=== PATIENT | female | born 1995 ===

== ENCOUNTER → 2020-12-18 15:31 | Outpatient (CLI) | payer OTHER, SELFPAY ==
[2020-12-18 16:19] LABS: Add Manual Diff / Slide Review NO; Basophils Absolute Auto 100 /uL (0-100); Basophils Percent Auto 0.6 % (0-2); Eosinophils Absolute Auto 200 /uL (0-450); Eosinophils Percent Auto 2.1 % (2-4); Hematocrit 36.5 % (36-46); Hemoglobin 12.9 g/dL (12.0-16.0); Lymphocytes Absolute Auto 2100 /uL (1100-4500); Lymphocytes Percent Auto 25.7 % (25-40); Mean Corpuscular HGB Conc 35.5 % (30-36); Mean Corpuscular Hemoglobin 31.6 PG (26-34); Mean Corpuscular Volume 88.9 fL (80-100); Monocytes Absolute Auto 800 /uL (0-900); Monocytes Percent Auto 9.2 % (3-14); Neutrophils Absolute Auto 5200 /uL (1500-7000); Neutrophils Percent Auto 62.4 % (50-75); Platelet Count 248 X10^3/uL (150-400); Red Cell Distribution Width 12.7 % (11.6-14.8); White Blood Cell Count 8.3 X10^3/uL (4.5-11.0)
[2020-12-18 16:41] LABS: Appearance Urine UA CLEAR; Bilirubin Urine UA NEGATIVE (NEGATIVE); Color Urine UA YELLOW; Glucose Urine UA NEGATIVE (Negative); Ketones Urine UA 1+ (NEGATIVE); Leukocyte Esterase Urine UA NEGATIVE (NEGATIVE); Nitrite Urine UA NEGATIVE (Negative); Occult Blood Urine UA NEGATIVE (Negative); Protein Urine UA TRACE (Negative); Specific Gravity Urine UA 1.025 (1.000-1.035); Urobilinogen Urine UA 0.2 E.U./dL (0.2)
[2020-12-19 06:40] LABS: RPR Screen Non Reactive (Non Reactive)
[2020-12-19 08:10] LABS: Varicella IgG Antibody 846 index (Immune >165)
[2020-12-19 16:25] LABS: Hepatitis B Surface Antigen NEGATIVE s/c (NEGATIVE)
[2020-12-19 16:48] LABS: HIV 1 & 2 Ab/Ag 4th Gen Combo NEGATIVE (NEGATIVE); Hep C Virus Ab w/Reflex Quant NEGATIVE s/c (NEGATIVE)
[2020-12-28 13:42] LABS: Rubella Antibody IgG 41.7 IU/mL (>15)
== END ==
PROVIDERS: Referring Provider Family Medicine; Visit Provider Family Medicine
DX: Z34.81 Encounter for supervision of other normal pregnancy, first trimester (principal)
CPT/HCPCS: 36415; 80055; 81003; 86787; 86803; 86850; 86900; 86901; 87086; 87389

== ENCOUNTER → 2021-02-11 12:56 | Outpatient (CLI) | payer OTHER, SELFPAY ==
[2021-02-15 20:22] LABS: Calc Gestational Age Ultrasound (.); Inhibin A, Dimeric 97.18 pg/mL (.); Inhibin A, MoM 0.79 (.); Maternal Ethnicity Other (.); Maternal Weight 234 lbs (.); Number of Fetuses No (.); OSBR Risk 1 IN 10000 (.); Results Report (.); Test Results *Screen Negative* (.); hCG, MoM 0.87 (.); hCG, Serum 25017 mIU/mL (.)
== END ==
PROVIDERS: Referring Provider Family Medicine; Visit Provider Family Medicine
DX: Z3A.16 16 weeks gestation of pregnancy (principal)
CPT/HCPCS: 36415; 82105; 82677; 84702; 86336

== ENCOUNTER → 2021-03-11 11:40 | Outpatient (CLI) | payer OTHER, SELFPAY ==
--- NOTE | 2021-03-11 11:41 | DI.US.S_ITS ---
PROCEDURE: US OB >= 14 WEEKS FETUS INDICATIONS: ANATOMY OUTSIDE/PRIOR DATING DATA: Last menstrual period (LMP): 10/29/2020. LMP-based estimated date of delivery (ESEQUIEL): 07/26/2021. First dating scan (date and location): 03/11/2021 Estimated date of delivery (ESEQUIEL) from first dating scan: 07/26/2021 The calculations are made using the study generated ESEQUIEL of 07/26/2021. TECHNIQUE: Real-time scanning was performed of the fetus, with image documentation and biometric measurements. Endovaginal scanning: Not indicated COMPARISON: None. FINDINGS: General: A single living intrauterine gestation is present. Presentation: Vertex Placenta: Placental position is posterior, without previa. Amniotic fluid index: 12.2 cm, normal range is 5-24 cm. Single deepest vertical pocket is 3.8 cm. heart rate: 169 beats per minute. Maternal cervical canal: 3.2 cm long. Normal lower limit is 2.5 cm. biometrics: Biparietal diameter: 4.8 cm, 20 weeks, 4 days Head circumference: 17.9 cm, 20 weeks, 2 days Abdominal circumference: 14.5 cm, 19 weeks, 5 days Femur length: 3.5 cm, 21 weeks, 1 day Clinically estimated gestational age: Not applicable Composite gestational age from present scan: 20 weeks, 3 days Estimated weight and percentile: 352 g, 44% Anatomic survey: Neuro: Ventricles are non-dilated at less than 10 mm. Cisterna magna is normal at 3-11 mm. Cerebellum is normal in size and morphology. Nuchal skin fold: Normal at less than 6 mm between 14-21 weeks gestational age. Face: Nose and lips, facial profile are not well seen due to lie. Spine: No evidence for spina bifida. Heart: 4-chambered heart is present, with normal ventricular outflow tracts. Diaphragm: Diaphragm is intact. Stomach: Left-sided stomach is present. Kidneys: No hydronephrosis. Normal is less than 5 mm in 2nd trimester, less than 7 mm in 3rd trimester. Cord: 3-vessel cord has orthotopic insertion. Bladder: Normal in size. Extremities: All 4 extremities identified. IMPRESSION: 1. Single live intrauterine with fetus in vertex presentation. heart rate is 169 beats per minute. Normal amount of amniotic fluid. Estimated gestational age is 20 weeks, 3 days. Estimated weight is at 44th percentile. 2. facial profile is not well seen due to lie. Rest of the anatomic survey is normal. We strive to produce accurate, complete, and clear reports of imaging services. To assist us in improving patient care, this report was composed using standard report templates and voice recognition software. Therefore, it may contain abnormal punctuation, insertions and/or omissions. Occasional wrong-word or sound-alike substitutions may occur. Though we review the report and make efforts to correct it, we do recommend that the report be read carefully in proper context to recognize any text inaccuracies. Dictated by: Ez Aragon M.D. on 03/17/2021 at 15:20 Approved by: Ez Aragon M.D. on 03/17/2021 at 15:24
== END ==
PROVIDERS: Referring Provider Family Medicine; Visit Provider Family Medicine
DX: Z36.89 Encounter for other specified antenatal screening (principal); Z3A.20 20 weeks gestation of pregnancy
CPT/HCPCS: 76811

== ENCOUNTER → 2021-03-26 15:46 | Outpatient (CLI) | payer OTHER, SELFPAY ==
--- NOTE | 2021-03-26 15:47 | DI.US.S_ITS ---
PROCEDURE: US OB FOLLOW UP INDICATIONS: FOLLOW UP FACE AND PROFILE OUTSIDE/PRIOR DATING DATA: Last menstrual period (LMP): 10/19/2020 LMP-based estimated date of delivery (ESEQUIEL): 07/26/2021. First dating scan (date and location): 03/11/2021. Estimated date of delivery (ESEQUIEL) from first dating scan: 07/26/2021. The calculations are made using the ultrasound ESEQUIEL of 07/26/2021. TECHNIQUE: Real-time scanning was performed of the fetus, with image documentation and biometric measurements. COMPARISON: [facility], , OB >= 14 WEEKS FETUS, 03/11/2021, 12:19. 6 FINDINGS: General: A single living intrauterine gestation is present. Presentation: Breech. Placenta: Placental position is posterior , without previa. Amniotic fluid index: 16 cm, normal range is 5-24 cm. heart rate: 162 beats per minute. Maternal cervical canal: 4.1 cm long. Normal lower limit is 2.5 cm. Clinically estimated gestational age: 22 weeks 4 days + normal appearance of the facial profile, nose and lips. IMPRESSION: Single living IUP redemonstrated and today's exam demonstrating normal appearance of the facial profile and the nose and lips. We strive to produce accurate, complete, and clear reports of imaging services. To assist us in improving patient care, this report was composed using standard report templates and voice recognition software. Therefore, it may contain abnormal punctuation, insertions and/or omissions. Occasional wrong-word or sound-alike substitutions may occur. Though we review the report and make efforts to correct it, we do recommend that the report be read carefully in proper context to recognize any text inaccuracies. Dictated by: Sven Posada [facility] Interpreted: Nitish Yoo MD on 03/26/2021 at 17:08 Transcribed by: PAMELA on 03/26/2021 at 17:10 Approved by: Nitish Yoo M.D. on 04/23/2021 at 11:14
== END ==
PROVIDERS: Referring Provider Family Medicine; Visit Provider Family Medicine
DX: Z36.2 Encounter for other antenatal screening follow-up (principal); Z3A.22 22 weeks gestation of pregnancy
CPT/HCPCS: 76816

== ENCOUNTER → 2021-04-28 13:20 | Outpatient (CLI) | payer OTHER, SELFPAY ==
[2021-04-28 14:53] LABS: Add Manual Diff / Slide Review NO; Basophils Absolute Auto 0 /uL (0-100); Basophils Percent Auto 0.3 % (0-2); Eosinophils Absolute Auto 200 /uL (0-450); Eosinophils Percent Auto 1.8 % (2-4); Hematocrit 35.6 % (36-46); Hemoglobin 12.8 g/dL (12.0-16.0); Lymphocytes Absolute Auto 2000 /uL (1100-4500); Lymphocytes Percent Auto 19.3 % (25-40); Mean Corpuscular HGB Conc 35.9 % (30-36); Mean Corpuscular Hemoglobin 32.5 PG (26-34); Mean Corpuscular Volume 90.5 fL (80-100); Monocytes Absolute Auto 600 /uL (0-900); Monocytes Percent Auto 5.9 % (3-14); Neutrophils Absolute Auto 7600 /uL (1500-7000); Neutrophils Percent Auto 72.7 % (50-75); Platelet Count 220 X10^3/uL (150-400); Red Blood Cell Count 3.94 X10^6/uL (4.0-5.2); Red Cell Distribution Width 13.5 % (11.6-14.8); White Blood Cell Count 10.4 X10^3/uL (4.5-11.0)
[2021-04-28 15:09] LABS: GTT (PREG) 1 Hour PP 50gm Dose 124 mg/dL (76-139)
== END ==
PROVIDERS: Referring Provider Family Medicine; Visit Provider Family Medicine
DX: Z34.90 Encounter for supervision of normal pregnancy, unspecified, unspecified trimester (principal); Z3A.26 26 weeks gestation of pregnancy
CPT/HCPCS: 36415; 82950; 85025

== ENCOUNTER → 2021-07-02 10:22 | Outpatient (CLI) | payer OTHER, SELFPAY ==
[2021-07-03 07:55] LABS: Strep Grp B PCR NEG for Grp B Strep
== END ==
PROVIDERS: Visit Provider Family Medicine
DX: Z34.93 Encounter for supervision of normal pregnancy, unspecified, third trimester (principal); Z3A.36 36 weeks gestation of pregnancy
CPT/HCPCS: 87653

== ENCOUNTER 2021-07-28 18:22 | Inpatient (IN) | payer OTHER, SELFPAY ==
[2021-07-28 19:47] LABS: Add Manual Diff / Slide Review NO; Basophils Absolute Auto 100 /uL (0-100); Basophils Percent Auto 0.8 % (0-2); Eosinophils Absolute Auto 200 /uL (0-450); Eosinophils Percent Auto 2.1 % (2-4); Hematocrit 35.4 % (36-46); Hemoglobin 12.6 g/dL (12.0-16.0); Lymphocytes Absolute Auto 2000 /uL (1100-4500); Lymphocytes Percent Auto 24.5 % (25-40); Mean Corpuscular HGB Conc 35.7 % (30-36); Mean Corpuscular Hemoglobin 31.7 PG (26-34); Mean Corpuscular Volume 88.8 fL (80-100); Monocytes Absolute Auto 1000 /uL (0-900); Monocytes Percent Auto 12.8 % (3-14); Neutrophils Absolute Auto 4800 /uL (1500-7000); Neutrophils Percent Auto 59.8 % (50-75); Platelet Count 187 X10^3/uL (150-400); Red Blood Cell Count 3.99 X10^6/uL (4.0-5.2); Red Cell Distribution Width 14.5 % (11.6-14.8); White Blood Cell Count 8.1 X10^3/uL (4.5-11.0)
[2021-07-28 20:20] LABS: COVID19 -Nasal RAPID Negative (Negative)
[2021-07-28] MEDS: miSOPROStoL 25 MCG TABLET VAG (20:27)
[2021-07-29] MEDS: miSOPROStoL 25 MCG TABLET VAG (00:30)
--- NOTE | 2021-07-29 09:12 | P.HPOB_ITS ---
OB HPI Date/Time Date of admission: 07/29/21 Date Patient Seen: 07/28/21 History of Present Condition Chief complaint: Induction of labor ESEQUIEL Calculator Estimated Delivery Date Method Current WG Current Estimate 07/26/21 Manual 40w 3d Final ESEQUIEL - FILIPE Other Estimates 07/26/21 LMP (Certain) 40w 3d 07/27/21 Ultrasound #1 40w 2d Estimated Gestational Age (weeks): 40w3d : 1 Para: 0 Narrative: Pt is a 26yo at 40w3d here for elective/post-dates IOL. Pt reports frequent movement. She denies vaginal bleeding or LOF. She started having mild contractions overnight with cytotec. Her has been uncomplicated. care: limited care, initiated at week # (8) and pounds weight gain (48) Dating criteria OB: LMP confirmed by 1st trimester US Ultrasounds: normal 1st trimester US and normal mid trimester US Obstetrical complications: none Medical complications OB: none Preadmission Labs Last OB Lab Results: Blood Type O Positive 07/28/21 19:30 Antibody Screen Negative 07/28/21 19:30 Hematocrit 35.4 % (36-46) L 07/28/21 19:30 Hemoglobin 12.6 g/dL (12.0-16.0) 07/28/21 19:30 Hepatitis B Surface Antigen Negative s/c (NEGATIVE) 12/18/20 15 :52 Hepatitis C Antibody Negative s/c (NEGATIVE) 12/18/20 15:52 Rubella Antibody 41.7 IU/mL (>15) 12/18/20 15:52 Varicella-Zoster IgG Antibody 846 index (Immune >165) 12/18/20 15:52 Glucose 1 Hour 124 mg/dL (76-139) 04/28/21 13:26 Group B Streptococcus (PCR) Neg for grp b strep 07/02/21 10:22 -: Urine: negative Genetic Screens: Quad screen: Normal External Labs -: Urine: negative Evaluation Evaluation Baseline heart rate: 150 Variability: Moderate (11-25) monitor accelerations: Present Monitor Decelerations: Absent Contraction Frequency (minutes): 4 Status: Category l Dilation (cm): 2 Effacement (%): 60 Dilation: 1-2 cm Effacement: 60-70% station: -4 Position of cervix: posterior Consistency: soft Palacio score: 5 PFSH Medical History (Updated 12/09/20 @ 08:50 by Jacy Perez RN) GERD (gastroesophageal reflux disease) (~2005) Migraines (~2018) Surgical History (Updated 12/09/20 @ 08:50 by Jacy Perez RN) H/O bilateral breast reduction surgery (~09/2019) History of repair of ACL (~2011) Family History (Updated 12/09/20 @ 08:57 by Jacy Perez RN) Mother No problems noted. Father No problems noted. Grandmother Bronchitis Grandfather Unknown family medical history Grandmother Unknown family medical history Grandfather Unknown family medical history Social History marital status: number of children: 0 household members: spouse lives independently: Yes caregiver/support person: No housing: house pets and animals: Yes (1 dog: should be safe. ) education level: college (BA in Pre-law. ) occupational status: employed ([employer] ) current occupational exposures/hazards: No special daniel needs: No seatbelt use: always do you feel safe at home: Yes Smoking Status: Never smoker second hand exposure: No alcohol intake: former (Pre-: socially, infrequent, every couple months. ) substance use type: does not use during the past year weight has: remained stable well-balanced diet: about half the time daily servings fruits/ve-4 caffeine: No Type(s) of exercise: weight lifting (Used to do weight lifting, 3 times a week, some cardio in alternate weeks. ) and normal ROM and activity frequency: 3-4 times per week (Has not in the last month. ) duration: 30-45 minutes/day Meds Home Medications and Allergies Home Medications Medication Instructions Recorded Confirmed Type No Known Home Medications 07/28/21 07/28/21 History Allergies Allergy/AdvReac Type Severity Reaction Status Date / Time No Known Drug Allergies Allergy Verified 07/28/21 09:25 OB Exam Narrative Exam Narrative: Gen: NAD, sitting comfortably in bed, appears well CV: RRR, no murmurs Resp: clear to auscultation bilaterally Abd: soft, nontender, gravid Ext: no edema Objective Labs Result Diagrams: 07/28/21 19:30 Labs: Laboratory Results - last 24 hr 07/28/21 07/28/21 07/28/21 18:45 19:30 19:30 WBC 8.1 RBC 3.99 L Hgb 12.6 Hct 35.4 L MCV 88.8 MCH 31.7 MCHC 35.7 RDW 14.5 Plt Count 187 Neut % (Auto) 59.8 Lymph % (Auto) 24.5 L Lipscomb % (Auto) 12.8 Eos % (Auto) 2.1 Baso % (Auto) 0.8 Neut # (Auto) 4800 Lymph # (Auto) 2000 Lipscomb # (Auto) 1000 H Eos # (Auto) 200 Baso # (Auto) 100 SARS-CoV-2 (PCR) Negative Blood Type O Positive Antibody Screen Negative Assessment and Plan Assessment and Plan Assessment and Plan narrative: Pt is a 26yo at 40w3d here for elective/post-dates IOL. Pt received 2 doses of cytotec overnight with cervical change. Palacio score now 5, improved from 1 at admission. GBS negative, Rh positive. - Expectant management, anticipate - Encourage out of bed/ambulation to help with descent - FHT reassuring - GBS negative, no prophylaxis indicated - Epidural for pain control when in active labor - Palacio of 5, however pt with increasing contractions and would likely not tolerate well aburto placement. Will start pitocin and titrate as tolerated.
[2021-07-29] MEDS: LACTATED RINGERS 1,000 ML 100 ML IV ×2 (09:29→22:14)
[2021-07-29] MEDS: OXYTOCIN PREMIX 30 UNIT/500 ML PLAST..BAG IV (09:30)
--- NOTE | 2021-07-29 13:35 | PM.OBPNLAB ---
Date/Time Date Patient Seen: 07/29/21 Time Patient Seen: 13:00 Pain Control Pain control: tolerating well Pelvic Exam Dilation (cm): 3 Effacement (%): 70 station: -2 Amniotic membrane status: Ruptured Comments: Cervix remains very posterior After informed consent, AROM performed with production of clear fluid. Contractions Pitocin rate (mU/min): 8 Contraction frequency (min): 3 Contraction pattern: Regular Status status: Category l Heart Rate Baseline: 130 Monitor Accelerations: Present Monitor Decelerations: Absent Monitor Variability: Moderate Assessment and Plan Comments: Pt is a 26yo at 40w3d here for elective/post-dates IOL.? Pt received 2 doses of cytotec overnight with cervical change.? Now on pitocin with ongoing change. AROM performed with production of clear fluid. GBS negative, Rh positive.? - Expectant management, anticipate - FHT reassuring - GBS negative, no prophylaxis indicated - Epidural for pain control when in active labor - Continue pitocin, titrate as tolerated
[2021-07-29] MEDS: FENT 2MCG/ML BUPIV 0.125% EPI 200 MCG/100 ML PLAST..BAG 20 MCG EPIDURAL (22:58)
--- NOTE | 2021-07-30 02:55 | PM.OBPRVD ---
Labor & Delivery Delivery date: 07/30/21 Intrapartal Events: Prolonged 2nd Stage > 2.5 hours Cervical ripening method: per misoprostal protocol Induction method: per pitocin protocol Delivery augmentation: rupture of membranes Delivery monitor: external FHT and external uterine Route of delivery: Episiotomy description: None L&D Laceration Description: Periurethral - 1st Degree and Vaginal - 1st Degree Delivery repair: chromic Quantitative Blood Loss: 200 Anesthesia Type: Epidural Complications: None Narrative: PROCEDURE: at 40w2d presented for elective IOL and was admitted to Labor and Delivery. She received cytotec for induction. Pitocin was initiated, and titrated to maximum of 20mU. ROM was performed with production of clear fluid. The patient progressed through the 1st stage over 7.5 hours. Pain was controlled with an epidural. The patient progressed through the 2nd stage over 3 hours and delivered a viable male infant with APGARs 8/9 at 2:16 via without complications. The perineum and vagina were inspected with small vaginal laceration near the perineum that was bleeding and repaired with 3-O Chromic. Periurethral laceration was not repaired due to hemostasis. PREPROCEDURE DIAGNOSIS: Intrauterine at 40w3d GBS negative RH positive POSTPROCEDURE DIAGNOSIS: Intrauterine at 40w3d, delivered Same as preprocedure Baby 1: Infant gender: Male Presentation: vertex Position: Left Occiput Posterior (transverse quickly converting to LOP as head delivered) Placenta delivery description: Spontaneous Cord Vessel Description: 3 Vessels score (1 min): 8 score (5 min): 9 weight: 7 lb 7.543 oz Plan for aftercare: Routine care
[2021-07-30] MEDS: DERMOPLAST SPRAY 20% 60 ML 1 SPRAY TOP (08:34)
[2021-07-30] MEDS: LANOLIN OINT 7 GM 1 APPLIC TOP (08:35)
[2021-07-30] MEDS: DOCUSATE 100 MG CAPSULE PO (08:35)
[2021-07-30] MEDS: IBUPROFEN 600 MG TABLET PO ×2 (08:36→17:17)
[2021-07-30] MEDS: PRENATAL VIT,CALC/IRON/FOLIC 1 TABLET 1 TAB PO (08:36)
[2021-07-31] MEDS: IBUPROFEN 600 MG TABLET PO ×2 (01:09→08:03)
[2021-07-31] MEDS: DOCUSATE 100 MG CAPSULE PO (08:04)
[2021-07-31] MEDS: PRENATAL VIT,CALC/IRON/FOLIC 1 TABLET 1 TAB PO (08:04)
--- NOTE | 2021-07-31 10:42 | PM.OBDS.1 ---
Discharge Providers Provider Date of admission: 07/28/21 18:22 Discharge Date: 07/31/21 Primary care physician: Doctor Deonte MD Consults: 07/31/21 02:52 Consult to Product Safety Lead Routine Comment: Discharge provider: Beth Sevilla MD Summary Hospital Course Date Patient Seen: 07/31/21 Time Patient Seen: 09:45 Diagnoses: 40w3d gestation GBS negative RH positive Hospital Course: The pt presented for elective IOL. She received cytotec followed by pitocin. She had an epidural for pain control. AROM was performed with clear fluid present. She progressed to complete and had an of a viable boy on 07/30/21. A small vaginal laceration was then repaired. , there were no complications. At the time of discharge she was voiding, ambulating, passing flatus without difficulty. Her lochia was decreasing appropriately. She was breast-feeding with good last. Her pain was well controlled. She will follow up in clinic in 6 weeks her check. She is undecided regarding contraception. Peripartum Data Infant Delivery Method: Natural Vaginal Laceration Description: Vaginal - 1st Degree Episiotomy description: None Procedures: Spontaneous vaginal delivery complications: none [place] 1: Gender: Male Disposition of : home Discharge Diagnosis (1) Spontaneous vaginal delivery: Status: Acute Status at Discharge Cognitive/behavioral status at discharge: oriented Functional status at discharge: independent ambulation Overall status at discharge: patient is progressing back to baseline Time Spent with Patient Time attestation: Total time spent providing and/or coordinating discharge services: Objective Labs Result Diagrams: 07/28/21 19:30 Exam Narrative Exam Narrative: Gen: NAD, sitting comfortably in bed, appears well CV: RRR, no murmurs Resp: clear to auscultation bilaterally Abd: soft, appropriately tender, fundus firm and below the umbilicus, nondistended Ext: no edema Discharge Plan Discharge Plan Patient Disposition: Home Discharge orders & Medications Prescriptions: New acetaminophen 325 mg Tablet 650 mg PO Q6HR PRN (Reason: Pain, Mild (1-3)) Qty: 30 0RF docusate sodium 100 mg Capsule 100 mg PO DAILY Qty: 30 0RF ibuprofen 600 mg Tablet 600 mg PO Q6HR PRN (Reason: Pain, Mild (1-3)) Qty: 30 0RF Follow up/Referrals: Beth Sevilla MD [Physician] - 6 Weeks (You can make your 6 week appointment tomorrow at your baby's follow up appointment. ) Diet/Activity/Treatments Diet: Diet as Tolerated and Regular Skin/Wound/Dressing Care Report to your healthcare provider any signs of infection, such as:: chills, fever, increased pain and unusual drainage Visit Report/Discharge Packet Instructions: DI for and Nipple Soreness Stand Alone Forms: Discharge: Care Visit Report Forms: Patient Portal/API, Stroke Signs & Symptoms Discharge Data Primary Care Provider: Miscellaneous,Doctor Discharges patient from system. Discharge Date/Time: 07/31/21 14:40
[2021-07-31 13:56] VITALS: BP 129/68; PULSE 92; RESP 16; TEMP 36.7
== END 2021-07-31 14:40 | disposition home or self-care (01) | DRG 807 ==
PROVIDERS: Admitting Provider Family Medicine; Referring Provider Family Medicine; Visit Provider Family Medicine
DX: O48.0 Post-term pregnancy (principal); Z37.0 Single live birth; O63.1 Prolonged second stage (of labor); Z3A.40 40 weeks gestation of pregnancy; O70.0 First degree perineal laceration during delivery; Z20.822 Contact with and (suspected) exposure to COVID-19
CPT/HCPCS: 01967; 36415; 59050; 59400; 85025; 86850; 86900; 86901; 87635; C9803; G0379; J2590

== ENCOUNTER 2021-11-07 14:23 | Emergency (ER) | payer OTHER, SELFPAY ==
[2021-11-07 14:26] VITALS: BP 111/53; PULSE 85; RESP 20; TEMP 36.7; O2SAT 99; BMI 40.7
--- NOTE | 2021-11-07 14:31 | DI.RAD.S_ITS ---
PROCEDURE: XR KNEE RT 3V INDICATIONS: injury/felt a pop TECHNIQUE: 3 views of the knee were acquired. COMPARISON: None. FINDINGS: Bones: No fractures or dislocations. No suspicious bony lesions. There is a small patellar enthesophyte. Soft tissues: No joint effusion. No suspicious soft tissue calcifications. IMPRESSION: Mild degenerative change. No acute radiographic findings. Dictated by: Shikha Dubon M.D. on 11/07/2021 at 15:20 Approved by: Shikha Dubon M.D. on 11/07/2021 at 15:20
--- NOTE | 2021-11-07 15:42 | ED.LOWEXIN ---
HPI - Extremity Injury (Lower) <Chris Alejandro PA-C - Last Filed: 11/07/21 17:00> General Chief Complaint: Extremity Injury, Lower Stated Complaint: R Knee Pain Time Seen by Provider: 11/07/21 15:42 Source: patient Mode of arrival: EMS History of Present Illness HPI Narrative: Patient is 26-year-old female who presents to the emergency room today with complaint of right knee pain this started after she heard a pop while playing volleyball today at about 1:00 a.m.. States she has had a torn ACL in her left knee and that this feels the same. States the knee is very painful and it is difficult for her to weight bear using that knee. States she is in a he needs to go to work any something still show her limited ability. Denies any other concerns at this time Related Data Previous Rx's Medication Instructions Recorded acetaminophen 325 mg tablet 650 mg PO Q6HR PRN Pain, Mild 07/31/21 (1-3) #30 tabs docusate sodium 100 mg capsule 100 mg PO DAILY #30 caps 07/31/21 ibuprofen 600 mg tablet 600 mg PO Q6HR PRN Pain, Mild 07/31/21 (1-3) #30 tabs Allergies Allergy/AdvReac Type Severity Reaction Status Date / Time No Known Drug Allergies Allergy Verified 07/28/21 09:25 Review of Systems <Chris Alejandro PA-C - Last Filed: 11/07/21 17:00> Review of Systems Narrative: R.O.S.: General: No fever, chills or fatigue. Cardiovascular: No chest pain or palpitations Respiratory: No S.O.B. HEENT: No congestion, ear pain, rhinorrhea, sore throat or tinnitus Gastrointestinal: No nausea or vomiting Skin: No rash or associated abnormalities Musculoskeletal: Right knee pain? Neurological: Awake, alert and in not apparent distress. No Headaches, changes in vision or other related neurological concerns. Patient History <Chris Alejandro PA-C - Last Filed: 11/07/21 17:00> Medical History (Updated 11/07/21 @ 16:52 by Chris Alejandro PA-C) GERD (gastroesophageal reflux disease) (~2005) Migraines (~2018) Surgical History (Updated 12/09/20 @ 08:50 by Jacy Perez RN) H/O bilateral breast reduction surgery (~09/2019) History of repair of ACL (~2011) Family History (Updated 12/09/20 @ 08:57 by Jacy Perez RN) Mother No problems noted. Father No problems noted. Grandmother Bronchitis Grandfather Unknown family medical history Grandmother Unknown family medical history Grandfather Unknown family medical history Social History marital status: number of children: 0 household members: spouse lives independently: Yes caregiver/support person: No housing: house pets and animals: Yes (1 dog: should be safe. ) education level: college occupational status: employed current occupational exposures/hazards: No special daniel needs: No seatbelt use: always do you feel safe at home: Yes Smoking Status: Never smoker second hand exposure: No alcohol intake: former substance use type: does not use during the past year weight has: remained stable well-balanced diet: about half the time daily servings fruits/ve-4 caffeine: No Type(s) of exercise: weight lifting and normal ROM and activity frequency: 3-4 times per week duration: 30-45 minutes/day Smoking Status: Never smoker Substance Use Type: does not use Exam <Chris Alejandro PA-C - Last Filed: 11/07/21 17:00> Initial Vital Signs Initial Vital Signs: Vital Signs Temperature 98.1 F 11/07/21 14:26 Pulse Rate 85 11/07/21 14:26 Respiratory Rate 20 11/07/21 14:26 Blood Pressure 111/53 L 11/07/21 14:26 Pulse Oximetry 99 11/07/21 14:26 Oxygen Delivery Method 11/07/21 14:26 <Baldo Gamez MD - Last Filed: 11/12/21 07:00> Initial Vital Signs Initial Vital Signs: Vital Signs Temperature 98.1 F 11/07/21 14:26 Pulse Rate 85 11/07/21 14:26 Respiratory Rate 20 11/07/21 14:26 Blood Pressure 111/53 L 11/07/21 14:26 Pulse Oximetry 99 11/07/21 14:26 Oxygen Delivery Method 11/07/21 14:26 Course <Chris Alejandro PA-C - Last Filed: 11/07/21 17:00> Orders Ordered: ED Orders 11/07/21 14:31 XR knee RT 3V Stat Vital Signs Vital signs: Vital Signs - 8 hr 11/07/21 14:26 Temperature 98.1 F Pulse Rate 85 Respiratory Rate 20 Blood Pressure 111/53 L Pulse Oximetry 99 Oxygen Delivery Method Room Air <Baldo Gamez MD - Last Filed: 11/12/21 07:00> Orders Ordered: ED Orders 11/07/21 14:31 XR knee RT 3V Stat Vital Signs Vital signs: Vital Signs - 8 hr 11/07/21 14:26 Temperature 98.1 F Pulse Rate 85 Respiratory Rate 20 Blood Pressure 111/53 L Pulse Oximetry 99 Oxygen Delivery Method Room Air MDM - Extremity Injury (Lower) <Chris Alejandro PA-C - Last Filed: 11/07/21 17:00> Imaging Data Extremity x-ray #1: Radiologist's Impression: PROCEDURE:? XR KNEE RT 3V ? INDICATIONS:? injury/felt a pop ? TECHNIQUE:? 3 views of the knee were acquired.? ? COMPARISON:? None. ? FINDINGS:? ? Bones:? No fractures or dislocations.? No suspicious bony lesions.? There is a small patellar enthesophyte. ? Soft tissues:? No joint effusion.? No suspicious soft tissue calcifications.? ? ? IMPRESSION:? Mild degenerative change. No acute radiographic findings. ? ? Dictated by: Shikha Dubon M.D. on 11/07/2021 at 15:20 ? ? Approved by: Shikha Dubon M.D. on 11/07/2021 at 15:20 ? [facility] Narrative Medical decision making narrative: Patient is a 26-year-old female who presents to the emergency room today complaining of right knee pain. Think she has an ACL tear of her right knee as it feels exactly as it did when she had her ACL tear of her left knee. Physical exam was limited due to patient complaints of pain. Knee immobilizer crutches and referral to Ortho was done. Patient also given the phone number to Ortho and advised to contact Ortho next week. Patient also advised to refrain from any strenuous activities in the knee and to use nonsteroidal anti-inflammatories for pain patient agrees plan. Discharge Plan Departure Patient Disposition: Home Clinical Impression: Injury of knee, right Instructions: DI for Knee Pain Activity Restrictions/Additional Instructions: *You have been diagnosed with right knee injury. I have ordered a knee immobilizer crutches and referred to Ortho. Orthopedic provider is Dr. Panda and their phone number is [phone]. Also suggest you refrain from any weight-bearing or activity using the right knee into you follow-up with ortho. I suggest you take [id number] nonsteroidal anti-inflammatory medications with the pain. [ ] *What to do: *Please continue to take your regular medications as directed. [ ] New medication prescriptions sent to your pharmacy: [ ] [ ] New medication written as a paper prescription [x] No new medications given *Please follow up with your primary care provider in 2-3 days, call for an appointment. Let them know you were seen in the Emergency Department and that we ask that you be seen in follow up. We will electronically transmit a record of today's note if your PCP is in our system *If you do not have a primary care provider please contact the [facility] Resource line at [phone]. They will ask some questions about your medical history and help get you set up with a doctor in the community. *Return to Emergency Department if you should have any new, worsening or concerning symptoms, such as [fever greater than 101 F, shaking chills, worsening pain, persistent vomiting or other bothersome symptoms] Prescriptions: No Action acetaminophen 325 mg Tablet 650 mg PO Q6HR PRN (Reason: Pain, Mild (1-3)) Qty: 30 0RF docusate sodium 100 mg Capsule 100 mg PO DAILY Qty: 30 0RF ibuprofen 600 mg Tablet 600 mg PO Q6HR PRN (Reason: Pain, Mild (1-3)) Qty: 30 0RF Referrals: Karime Contreras MD [Physician] - Miscellaneous,DoctorMD [Primary Care Provider] - Stand Alone Forms: Work Release Note Visit Report Forms: Patient Portal/API <Baldo Gamez MD - Last Filed: 11/12/21 07:00> Cosign ED Attending Cosdaxature Attestation: I was immediately available in the department for consultation. This documentation has been reviewed and I agree with assessment and plan. Supervised by Baldo Gamez MD
[2021-11-07 17:22] VITALS: BP 110/70; PULSE 80; RESP 18; O2SAT 98
== END 2021-11-07 17:22 | disposition home or self-care (01) ==
PROVIDERS: Emergency Provider Physician Assistant
DX: M25.561 Pain in right knee (principal); Y93.68 Activity, volleyball (beach) (court)
CPT/HCPCS: 29530; 73562; 99282; 99283